=== PATIENT | female | born 1980 | race Caucasian/White ===

== ENCOUNTER 2022-10-22 20:16 | Emergency (ER) | payer OTHER ==
[~2022-10-22] VITALS: Ht 170.2 cm; Wt 61.2 kg
== END 2022-10-22 21:02 | disposition home or self-care (01) ==
LOC: ER 20:16
DX: M79.671 Pain in right foot (principal); S90.921A Unspecified superficial injury of right foot, initial encounter; W55.82XA Struck by other mammals, initial encounter; Y93.89 Activity, other specified; Y92.832 Beach as the place of occurrence of the external cause; Y99.9 Unspecified external cause status; Z88.8 Allergy status to other drugs, medicaments and biological substances